=== PATIENT | female | born 1955 | race African-American/Black ===

== ENCOUNTER 2017-06-02 14:20 | Emergency (ER) | payer SELFPAY ==
[~2017-06-02] VITALS: Ht 160 cm; Wt 111.1 kg
[2017-06-02 14:22] VITALS: BP_SYST 152
--- NOTE | 2017-06-02 14:22 | NUR ---
Patient triaged and placed in waiting room. VSS and patient appears in no acute distress at this time. Accompanied by SELF, awaiting available bed, and MD notified of need for MSE.
--- NOTE | 2017-06-02 15:55 | NUR ---
Placed in room 7 for medication. C/O 9/10 neck pain with difficulty moving her neck.
[2017-06-02] MEDS ORDERED: KETOROLAC TROMETHAMINE 60 MG/2 ML VIAL IM ONE (16:00)
--- NOTE | 2017-06-02 16:01 | NUR ---
[facility].
--- NOTE | 2017-06-02 16:25 | NUR ---
Patient given written and verbal discharge instructions and verbalizes understanding. ER MD discussed with patient the results and treatment provided. Patient in stable condition. ID arm band removed. Rx of Soma, given. Patient educated on pain management and to follow up with Tramadol, Motrin, Soma PMD. Pain Scale 0/10. Opportunity for questions provided and answered.
== END 2017-06-02 16:25 | disposition home or self-care (01) ==
LOC: SED 14:20
DX: S16.1XXA Strain of muscle, fascia and tendon at neck level, initial encounter (principal); I10 Essential (primary) hypertension; Z90.89 Acquired absence of other organs; Z90.710 Acquired absence of both cervix and uterus; X58.XXXA Exposure to other specified factors, initial encounter; Y93.89 Activity, other specified; Y92.89 Other specified places as the place of occurrence of the external cause; Y99.2 Volunteer activity
CPT/HCPCS: 96372; 99283; J1885